=== PATIENT | male | born 1945 | race Caucasian/White ===

== ENCOUNTER 2019-03-17 06:00 | Outpatient (RCR) | payer MEDICARE, MEDICAID, SELFPAY | END 2019-03-18 23:59 | disposition home or self-care (01) | LOC: LAB 06:00 | DX: E78.00 Pure hypercholesterolemia, unspecified (principal); I10 Essential (primary) hypertension; E11.9 Type 2 diabetes mellitus without complications; E83.42 Hypomagnesemia; R33.8 Other retention of urine; E78.5 Hyperlipidemia, unspecified | CPT/HCPCS: 36415; 80061; 82044 ×2 ==